=== PATIENT | male | born 1965 | race African-American/Black ===

== ENCOUNTER 2016-11-08 18:18 | Emergency (ER) | payer OTHER ==
[~2016-11-08] VITALS: Ht 172.7 cm; Wt 74.8 kg
[2016-11-08 18:31] VITALS: BP 117/65
--- NOTE | 2016-11-08 19:14 | PHYS DOC ---
Past Medical History Past Medical History: No Pertinent History Past Surgical History: No Surgical History Alcohol Use: None Drug Use: None Adult General Chief Complaint Chief Complaint: COUGH HPI HPI Patient is a 51 year old male presents emergency Department today with complaint of ongoing productive cough, left earache and subjective fevers with chills began 2 weeks ago. Patient states he was seen at [facility] urgent care last week was informed that a viral upper respiratory infection. He denies any history of heart or lung disease. Patient states he's a nonsmoker. Patient denies any antibiotic use, foreign travel or hospitalization within the past 90 days. Review of Systems Review of Systems Constitutional: Denies fever or chills [] Eyes: Denies change in visual acuity, redness, or eye pain [] HENT: Denies nasal congestion or sore throat [] Respiratory: Denies cough or shortness of breath [] Cardiovascular: No additional information not addressed in HPI [] GI: Denies abdominal pain, nausea, vomiting, bloody stools or diarrhea [] : Denies dysuria or hematuria [] Musculoskeletal: Denies back pain or joint pain [] Integument: Denies rash or skin lesions [] Neurologic: Denies headache, focal weakness or sensory changes [] Endocrine: Denies polyuria or polydipsia [] Allergies Allergies Allergies Coded Allergies Type Severity Reaction Last Updated Verified No Known Drug Allergies 11/08/16 No Physical Exam Physical Exam Constitutional: Well developed, well nourished, no acute distress, non-toxic appearance. [] HENT: Normocephalic, atraumatic, bilateral external ears normal, oropharynx moist, no oral exudates, nose normal. Tympanic membrane is bulging and hyperemic. The margins the umbo are slightly distorted. There is no perforation or fluid meniscus. There is no evidence of mastoiditis. Eyes: PERRLA, EOMI, conjunctiva normal, no discharge. [] Neck: Normal range of motion, no tenderness, supple, no stridor. There is no meningismus. There is bilateral anterior and posterior cervical lymphadenopathy. Cardiovascular:Heart rate regular rhythm, no murmur [] Lungs & Thorax: There is no evidence respiratory distress or respiratory fatigue. Lung sounds are difficult to auscultate as patient wanted moan or make chart sounds upon exhalation Abdomen: Bowel sounds normal, soft, no tenderness, no masses, no pulsatile masses. [] Skin: Warm, dry, no erythema, no rash. [] Back: No tenderness, no CVA tenderness. [] Extremities: No tenderness, no cyanosis, no clubbing, ROM intact, no edema. [] Neurologic: Alert and oriented X 3, normal motor function, normal sensory function, no focal deficits noted. [] Psychologic: Affect normal, judgement normal, mood normal. [] Current Patient Data Vital Signs Vital Signs Date Time Temp Pulse Resp B/P Pulse Ox O2 Delivery O2 Flow Rate FiO2 11/08/16 18:31 99.0 81 18 117/65 96 Room Air 99.0 EKG EKG [] Radiology/Procedures Radiology/Procedures PA and lateral chest x-ray are performed with adequate technique. There is no distinct evidence of an infiltrate or consolidation. There is no evidence of pneumothorax or other acute thoracic process. Course & Med Decision Making Course & Med Decision Making Pertinent Labs and Imaging studies reviewed. (See chart for details) [] Dragon Disclaimer Dragon Disclaimer This electronic medical record was generated, in whole or in part, using a voice recognition dictation system. Departure Departure Impression: Primary Impression: Otitis media Additional Impression: Bronchitis Disposition: HOME, SELF-CARE Condition: GOOD Referrals: UNKNOWN PCP NAME (PCP) Patient Instructions: Acute Bronchitis, [id number], Otitis Media, Adult, Easy -to-Read Additional Instructions: 1. Chest x-ray today did not show any evidence of pneumonia. 2. Review the discharge instructions for self-care and reasons to return the emergency department. 3. Take the medication as prescribed. 4. Contact primary care doctor's office to schedule follow-up appointment for reevaluation within 5-7 days. Scripts D-Methorphan Hb/Prometh Hcl (Promethazine-Dm Syrup)118 Ml Syrup5 Ml PO PRN Q6HRS COUGH #120 ML Prov:NAVEEN GARCIA 11/08/16 Albuterol Sulfate (Proair Hfa Inhaler)8.5 Gm [id number] Puff INH PRN Q6HRS PRN SHORTNESS OF BREATH #1 INHALER Ref 0 Prov:NAVEEN GARCIA 11/08/16 Azithromycin (Azithromycin Tablet)250 Mg Tablet1 Pkg PO UD #6 TAB Prov:NAVEEN GARCIA 11/08/16 Prednisone 50 Mg Tablet1 Tab PO DAILY #5 TAB Prov:NAVEEN GARCIA 11/08/16 Problem Qualifiers NAVEEN GARCIA Nov 08, 2016 19:14
[2016-11-08] MEDS ORDERED: PRED50TA PO (19:32)
[2016-11-08] MEDS ORDERED: D-ME118S2 PO (19:32)
[2016-11-08] MEDS ORDERED: PROAIR HFA8.5 GM INH (19:32)
[2016-11-08] MEDS ORDERED: AZIT250T6 PO (19:32)
--- NOTE | 2016-11-09 08:43 | RAD ---
EXAM: Chest 2 views. HISTORY: Cough and fever. COMPARISON: None. FINDINGS: Frontal and lateral views of the chest are obtained. There are no confluent infiltrates. The hemidiaphragms are mildly flattened. There is no pneumothorax or pleural effusion. The heart is not enlarged. IMPRESSION: 1. Hyperinflation. Correlate for air trapping. No confluent infiltrates.
== END 2016-11-08 19:39 | disposition home or self-care (01) ==
LOC: ER 18:18
DX: J40 Bronchitis, not specified as acute or chronic (principal); H66.92 Otitis media, unspecified, left ear
CPT/HCPCS: 71020; 99284